=== PATIENT | male | born 1940 | race Caucasian/White ===

== ENCOUNTER 2019-02-11 06:31 | Day surgery (SDC) | payer MEDICARE, OTHER, SELFPAY ==
--- NOTE | 2019-02-11 | PATH_ITS ---
[facility] Accession Number: [id number] . 01 Material submitted: . PART A: colon - TRANSVERSE COLON POLYP, NEAR HEPATIC FLEXURE X 2 PART B: colon - COLON POLYP AT 60 CM . 02 Diagnosis: A. Transverse Colon, Near Hepatic Flexure, Polyps: Fragments of tubular adenoma (two polyps removed). . B. Colon at 60 cm, Polyp: Tubular adenoma. MRV/02/12/2019 . 02 Electronically signed: . Alexander Medina MD, PhD, Pathologist NPI- [id number] . 01 Gross description: . Part A: TRANSVERSE COLON POLYP, NEAR HEPATIC FLEXURE X 2: Received in formalin are 4 fragment(s) of bonilla, soft tissue measuring 0.1 x 0.1 x 0.1 cm to 0.3 x 0.3 x 0.2 cm which is entirely submitted and submitted entirely in 1 cassette(s) Part B: COLON POLYP AT 60 CM: Received in formalin are multiple fragment(s) of bonilla, soft tissue measuring 0.1 x 0.1 x 0.1 cm to 0.3 x 0.3 x 0.3 cm which is entirely submitted and submitted entirely in 1 cassette(s) /DMC /D[facility] . 02 Pathologist provided ICD-10: D12.3, D12.6 . 02 CPT . 488202, 389117 Performed at: 01 [facility] [address], [place], [place] [id number] MD Williams Acevedo MD Phone: [phone] Performed at: 02 [facility] [address] [place], [place] [id number] MD Ramona Mi MD Phone: [phone]
[2019-02-11 07:19] VITALS: BP 148/84; PULSE 66; RESP 16; TEMP 36.8; O2SAT 96; BMI 29.0
--- NOTE | 2019-02-11 08:10 | PM.HP.1 ---
History of Present Illness Date Patient Seen: 02/11/19 Time Patient Seen: 08:04 Chief complaint: [id number] Narrative: The patient is a gentleman here for screening colonoscopy. Last exam was in 2011. He has a history of polyps. Patient History Medical History Cataracts, bilateral (Acute) Gout (Acute) Hypertension (Acute) Social History household members: spouse Family & Social History Social History: household members spouse Meds Home Medications Medication Instructions Recorded Confirmed Type cholecalciferol (vitamin D3) 4,000 iu PO QDAY #0 05/04/17 02/11/19 History [Vitamin D3] allopurinol 100 mg PO DAILY 02/11/19 02/11/19 History lisinopril 20 mg PO DAILY 02/11/19 02/11/19 History omega 8-gwj-sxx-fish oil [Fish Oil] 2 cap PO DAILY 02/11/19 02/11/19 History Allergies Allergy/AdvReac Type Severity Reaction Status Date / Time No Known Drug Allergies Allergy Verified 02/11/19 07:18 Review of Systems Review of Systems All systems reviewed & are unremarkable except as noted in HPI and below Exam Vital Signs (past 8 hours): - 02/11/19 07:19 Temperature 98.3 F Pulse Rate 66 Respiratory Rate 16 Blood Pressure 148/84 H Pulse Oximetry 96 Oxygen Delivery Method Room Air Narrative Exam Narrative: Pleasant cooperative patient no apparent distress. Lungs are clear to auscultation. No rales or rhonchi. Heart regular rate and rhythm no murmur gallop. Abdomen is soft nontender without mass. May have a small asymptomatic umbilical hernia. Patient is alert and oriented x3. Assessment & Plan Assessment & Plan narrative: The patient for a screening colonoscopy. I have discussed the procedure with them. Risks of bleeding, perforation which would necessitate major operation, failure to find remove all lesions, the potential tattoo were all discussed. All questions were answered. They wished to proceed.
--- NOTE | 2019-02-11 08:12 | PM.PREOP ---
Pre-operative Note Interval Note History & Physical reviewed/Exam performed by Physician: Yes Changes to H&P: No ASA Class (for procedural sedation): II
[2019-02-11] MEDS: MIDAZOLAM 5 MG/5 ML VIAL IV (08:32)
[2019-02-11] MEDS: fentaNYL 250 MCG/5 ML INJ IV (08:33)
--- NOTE | 2019-02-11 08:40 | PM.OP.ENDO ---
Operative Date/Time/Diagnoses Date of procedure: 02/11/19 Time of procedure: 08:40 Pre-op diagnosis: Screening exam. Last exam 2011. Personal history of polyps. Post-op diagnosis: same (Polyps) Procedure & Clinicians Study performed: Colonoscopy with cold biopsy Same procedure as scheduled: Yes Indications: Screening Surgeon: Tom Bonilla Procedure Notes SCOAP/Timeout: Performed Procedure in detail: The patient was placed in the left lateral decubitus position and underwent IV sedation directed by the surgeon consisting of fentanyl and Versed. Digital exam was remarkable for a mildly enlarged prostate without dominant mass. The scope was inserted and advanced through the rectum into the sigmoid, descending, transverse, and ascending colon. I saw [address] in and these were biopsied and completely removed. They were located in the transverse colon near the hepatic flexure.. The cecum was reached identified by the ileocecal valve and the appendiceal opening. The scope was gradually brought out. One additional Polyp was found at 60 cm from the anal verge and was removed with cold biopsy forceps. The scope ultimately was retroflexed in the rectum. The appearance was normal. The scope was removed and the patient tolerated the procedure well. Prep was very good Scope withdrawal time: 9-1/2 minutes total Sedation minutes: 25 Findings: polyp (Three small polyps) Specimen(s): other (Polyps) Complications: none Recommendations: Colonscopy in 5 years Follow up: as needed Disposition: PACU
[2019-02-11 08:44] VITALS: BP 110/69; PULSE 64; RESP 12; TEMP 36.6; O2SAT 96
[2019-02-11 08:48] VITALS: BP 112/76; PULSE 60; RESP 14; O2SAT 95
[2019-02-11 08:53] VITALS: BP 117/72; PULSE 60; RESP 16; O2SAT 95
[2019-02-11 08:58] VITALS: BP 127/76; PULSE 58; RESP 12; TEMP 36.1; O2SAT 98
--- NOTE | 2019-02-11 09:06 | SUR.PHASEII ---
Spoke with friend Meri who has said she would keep an eye on the patient over the next few hours. He told me that he'd planned to go home to self care with friend a phone call away and not present. She is told over the next four hours it is better to be close by, due to the potential effects of the meds received.
[2019-02-11 09:10] VITALS: BP 140/80; PULSE 56; RESP 16; O2SAT 100
== END 2019-02-11 09:27 | disposition home or self-care (01) ==
PROVIDERS: Visit Provider Specialist
PROC: 0DJD8ZZ Inspection of Lower Intestinal Tract, Via Natural or Artificial Opening Endoscopic (ICD-10-PCS; CPT 45378; principal; 2019-02-11 07:45)
DX: Z86.010 Personal history of colon polyps (principal); D12.3 Benign neoplasm of transverse colon; D12.6 Benign neoplasm of colon, unspecified; N40.0 Benign prostatic hyperplasia without lower urinary tract symptoms; I10 Essential (primary) hypertension
CPT/HCPCS: 45380; 88305; 99152; J2250; J3010

== ENCOUNTER → 2019-06-09 15:26 | Outpatient (ROUT) | payer MEDICARE, OTHER, SELFPAY ==
[2019-06-09 15:52] LABS: Alanine Aminotransferase 30 IU/L (<50); Albumin 4.3 g/dL (3.5-5.0); Albumin Globulin Ratio 1.6 (1.0-2.8); Alkaline Phosphatase 56 U/L (38-126); Aspartate Aminotransferase 33 IU/L (17-59); Bilirubin Total 0.8 mg/dL (0.2-1.3); Blood Urea Nitrogen 33 mg/dL (9-20); Calcium 9.6 mg/dL (8.4-10.2); Carbon Dioxide 26 mmol/L (22-32); Chloride 107 mmol/L (98-107); Cholesterol 202 mg/dL (140-199); Estimated Glomerular Filt Rate 45.4 mL/min (>60); Globulin 2.7 g/dL (1.7-4.1); Glucose 106 mg/dL (80-110); HDL Cholesterol 69 mg/dL (40-60); HEMOLYSIS < 15 (0-50); LDL Cholesterol Calculated 123 mg/dL (<100); Potassium 4.9 mmol/L (3.4-5.1); Sodium 141 mmol/L (137-145); Triglycerides 51 mg/dL (35-150); Uric Acid 7.1 mg/dL (3.5-8.5)
[2019-06-09 16:21] LABS: Prostate Specific Antigen Scrn 0.949 ng/mL (0.1-4.0)
== END ==
PROVIDERS: Visit Provider Internal Medicine
DX: I10 Essential (primary) hypertension (principal); Z12.5 Encounter for screening for malignant neoplasm of prostate; M10.9 Gout, unspecified; E78.2 Mixed hyperlipidemia
CPT/HCPCS: 80053; 80061; 84550; G0103

== ENCOUNTER → 2020-05-05 19:01 | Outpatient (ROUT) | payer MEDICARE, OTHER, SELFPAY ==
[2020-05-05 19:15] LABS: Alanine Aminotransferase 24 IU/L (<50); Albumin 4.3 g/dL (3.5-5.0); Albumin Globulin Ratio 1.3 (1.0-2.8); Alkaline Phosphatase 63 U/L (38-126); Aspartate Aminotransferase 29 IU/L (17-59); BUN Creatinine Ratio 13.4 (6-22); Blood Urea Nitrogen 18 mg/dL (9-20); Calcium 9.4 mg/dL (8.4-10.2); Carbon Dioxide 25 mmol/L (22-32); Chloride 103 mmol/L (98-107); Cholesterol 208 mg/dL (140-199); Estimated Glomerular Filt Rate 51.6 mL/min (>60); Globulin 3.2 g/dL (1.7-4.1); Glucose 87 mg/dL (80-110); HDL Cholesterol 62 mg/dL (40-60); HEMOLYSIS < 15 (0-50); LDL Cholesterol Calculated 124 mg/dL (<100); Potassium 4.4 mmol/L (3.4-5.1); Sodium 138 mmol/L (137-145); Total Protein 7.5 g/dL (6.3-8.2); Triglycerides 111 mg/dL (35-150); Uric Acid 7.5 mg/dL (3.5-8.5)
[2020-05-06 14:25] LABS: Vitamin D 25 Hydroxy (D3) 80.5 ng/mL (30.0-100.0)
== END ==
PROVIDERS: Visit Provider Internal Medicine
DX: E78.2 Mixed hyperlipidemia (principal); M10.9 Gout, unspecified; E55.9 Vitamin D deficiency, unspecified; I10 Essential (primary) hypertension
CPT/HCPCS: 80053; 80061; 82306; 84550

== ENCOUNTER → 2020-07-21 14:57 | Outpatient (ROUT) | payer MEDICARE, OTHER, SELFPAY ==
[2020-07-21 15:32] LABS: Alanine Aminotransferase 35 IU/L (<50); Albumin 4.2 g/dL (3.5-5.0); Albumin Globulin Ratio 1.5 (1.0-2.8); Alkaline Phosphatase 57 U/L (38-126); Aspartate Aminotransferase 37 IU/L (17-59); BUN Creatinine Ratio 15.7 (6-22); Blood Urea Nitrogen 20 mg/dL (9-20); Calcium 9.5 mg/dL (8.4-10.2); Carbon Dioxide 29 mmol/L (22-32); Chloride 103 mmol/L (98-107); Cholesterol 147 mg/dL (140-199); Estimated Glomerular Filt Rate 54.8 mL/min (>60); Globulin 2.8 g/dL (1.7-4.1); Glucose 93 mg/dL (80-110); HDL Cholesterol 74 mg/dL (40-60); HEMOLYSIS < 15 (0-50); LDL Cholesterol Calculated 61 mg/dL (<100); Potassium 4.8 mmol/L (3.4-5.1); Sodium 137 mmol/L (137-145); Triglycerides 61 mg/dL (35-150); Uric Acid 5.2 mg/dL (3.5-8.5)
== END ==
PROVIDERS: Visit Provider Internal Medicine
DX: E78.2 Mixed hyperlipidemia (principal); M10.9 Gout, unspecified; N18.30 Chronic kidney disease, stage 3 unspecified; Z12.5 Encounter for screening for malignant neoplasm of prostate
CPT/HCPCS: 80053; 80061; 84153; 84154; 84550; G0103

== ENCOUNTER → 2020-11-23 14:45 | Outpatient (ROUT) | payer MEDICARE, OTHER, SELFPAY ==
[2020-11-23 15:01] LABS: Alanine Aminotransferase 28 IU/L (<50); Albumin Globulin Ratio 1.4 (1.0-2.8); Alkaline Phosphatase 55 U/L (38-126); Aspartate Aminotransferase 35 IU/L (17-59); BUN Creatinine Ratio 23.8 (6-22); Bilirubin Total 0.8 mg/dL (0.2-1.3); Blood Urea Nitrogen 35 mg/dL (9-20); Calcium 9.4 mg/dL (8.4-10.2); Carbon Dioxide 24 mmol/L (22-32); Chloride 108 mmol/L (98-107); Estimated Glomerular Filt Rate 46.3 mL/min (>60); Globulin 2.9 g/dL (1.7-4.1); Glucose 102 mg/dL (80-110); HEMOLYSIS < 15 (0-50); Sodium 140 mmol/L (137-145); Total Protein 6.9 g/dL (6.3-8.2)
== END ==
PROVIDERS: Visit Provider Internal Medicine
DX: I10 Essential (primary) hypertension (principal)
CPT/HCPCS: 80053

== ENCOUNTER → 2022-03-22 12:38 | Outpatient (CLI) | payer MEDICARE, OTHER, SELFPAY ==
[2022-03-22 13:53] LABS: Hematocrit 33.9 % (41-53); Hemoglobin 11.4 g/dL (13.5-17.5)
[2022-03-22 14:29] LABS: BUN Creatinine Ratio 17.1 (6-22); Blood Urea Nitrogen 25 mg/dL (9-20); Calcium 8.8 mg/dL (8.4-10.2); Carbon Dioxide 24 mmol/L (22-32); Chloride 106 mmol/L (98-107); Estimated Glomerular Filt Rate 49 mL/min (>60); Glucose 87 mg/dL (80-110); HEMOLYSIS < 15 (0-50); Potassium 4.7 mmol/L (3.4-5.1); Sodium 137 mmol/L (137-145)
[2022-03-22 15:59] LABS: Creatinine Urine Random 38.6 mg/dL; Protein (Total) Urine Random 58 mg/dL (0-12)
== END ==
PROVIDERS: PCP Internal Medicine; Referring Provider Student in an Organized Health Care Education/Training Program; Visit Provider Student in an Organized Health Care Education/Training Program
DX: N05.9 Unspecified nephritic syndrome with unspecified morphologic changes (principal); D64.9 Anemia, unspecified; R80.9 Proteinuria, unspecified
CPT/HCPCS: 36415; 80048; 82570; 84156; 85014; 85018

== ENCOUNTER → 2022-04-13 08:29 | Outpatient (CLI) | payer MEDICARE, OTHER, SELFPAY ==
--- NOTE | 2022-04-13 08:31 | DI.US.S_ITS ---
PROCEDURE: US RENAL COMPLETE INDICATIONS: STAGE 3 CHRONIC KIDNEY DISEASE TECHNIQUE: Real-time scanning was performed of the kidneys and bladder, with image documentation. COMPARISON: None. FINDINGS: Kidneys: Right kidney measures 11.4 cm long; left kidney measures 11.5 cm long. Right renal cortical thickness is 1 cm; left renal cortical thickness is 0.8 cm. Renal cortical echotexture is normal. No hydronephrosis or nephrolithiasis. No suspicious solid mass lesions. Multiple bilateral renal cysts are seen, with the largest on the right measuring 2.6 cm and the largest on the left 4 cm. Bladder: Pre-void bladder volume is 99 mL. Post-void residual is 7 mL. Pre-void images demonstrate no intraluminal masses or stones. On pre-void images, only the right ureteral jet can be seen with color Doppler interrogation. (Of note, ureteral jets may not be detectable in up to 25% of cases due to insufficient differences in specific gravity between ureteral and bladder urine). Miscellaneous: No free pelvic fluid. IMPRESSION: Mild cortical thinning can be seen involving each kidney. Negative for hydronephrosis. Small postvoid residual, 7 cc. Bilateral simple appearing renal cysts are seen. Dictated by: Kian Steinberg M.D. on 04/13/2022 at 8:20 Approved by: Kian Steinberg M.D. on 04/13/2022 at 8:21
== END ==
PROVIDERS: PCP Internal Medicine; Referring Provider Student in an Organized Health Care Education/Training Program; Visit Provider Student in an Organized Health Care Education/Training Program
DX: N18.31 Chronic kidney disease, stage 3a (principal); N28.1 Cyst of kidney, acquired; R80.9 Proteinuria, unspecified
CPT/HCPCS: 76770

== ENCOUNTER → 2022-05-01 10:42 | Outpatient (CLI) | payer MEDICARE, OTHER, SELFPAY ==
[2022-05-01 13:04] LABS: Hematocrit 38.3 % (41-53); Hemoglobin 12.6 g/dL (13.5-17.5)
[2022-05-01 13:27] LABS: BUN Creatinine Ratio 17.6 (6-22); Blood Urea Nitrogen 27 mg/dL (9-20); Calcium 9.1 mg/dL (8.4-10.2); Carbon Dioxide 23 mmol/L (22-32); Chloride 105 mmol/L (98-107); Estimated Glomerular Filt Rate 46 mL/min (>60); Glucose 96 mg/dL (80-110); HEMOLYSIS < 15 (0-50); Phosphorous 4.3 mg/dL (2.3-3.7); Potassium 4.6 mmol/L (3.4-5.1); Sodium 140 mmol/L (137-145)
[2022-05-01 14:15] LABS: Appearance Urine UA CLEAR; Bilirubin Urine UA NEGATIVE (NEGATIVE); Color Urine UA YELLOW; Glucose Urine UA NEGATIVE (Negative); Ketones Urine UA NEGATIVE (NEGATIVE); Leukocyte Esterase Urine UA TRACE (NEGATIVE); Nitrite Urine UA NEGATIVE (Negative); Occult Blood Urine UA TRACE-LYSED (Negative); Protein Urine UA 2+ (Negative); Urobilinogen Urine UA 0.2 E.U./dL (0.2); pH Urine UA 5.5 (4.5-8.0)
[2022-05-01 14:30] LABS: Bacteria Urine None Seen; Culture Indicated Urine Specimen Cultured; RBC Urine 0-1/HPF (0-5/HPF); WBC Urine 5-10/HPF (0-5/HPF)
[2022-05-01 14:35] LABS: Creatinine Urine Random 105.2 mg/dL; Protein (Total) Urine Random 113 mg/dL (0-12); Protein Creatinine Ratio Urine 1.07 GRAM/24H
[2022-05-01 15:14] LABS: Hepatitis B Surface Antigen NEGATIVE s/c (NEGATIVE)
[2022-05-01 15:27] LABS: Hep C Virus Ab w/Reflex Quant NEGATIVE s/c (NEGATIVE)
[2022-05-02 04:28] LABS: Hepatitis B Core Antibody Negative (Negative)
[2022-05-02 04:36] LABS: Complement C3 122 mg/dL (82-167)
[2022-05-02 18:16] LABS: DNA (DS) Antibody 4 IU/mL (0-9); Free Kappa Lt Chains, Serum 54.7 mg/L (3.3-19.4); Free Lambda Lt Chains,Serum 29.8 mg/L (5.7-26.3)
[2022-05-03 09:08] LABS: Parathyroid Hormone Int 48 pg/mL (15-65)
[2022-05-03 11:54] LABS: Hepatitis B Surf Ab Qualitativ Non Reactive (.)
[2022-05-03 16:40] LABS: Albumin 3.9 g/dL (2.9-4.4); Alpha-1-Globulin 0.2 g/dL (0.0-0.4); Alpha-2-Globulin 0.6 g/dL (0.4-1.0); Cytoplasmic C-ANCA <1:20 titer (Neg:<1:20); Gamma Globulin 1.1 g/dL (0.4-1.8); Globulin Total 2.9 g/dL (2.2-3.9); Perinuclear P-ANCA <1:20 titer (Neg:<1:20); Protein, Total 6.8 g/dL (6.0-8.5)
[2022-05-04 17:52] LABS: ANA Screen, IFA Negative (.)
[2022-05-23 14:03] LABS: Alpha-1 Globulin, Ur 2.1 % (.); Beta Globulin, Ur 12.8 % (.); Gamma Globulin, Ur 9.3 % (.); M-Spike % Not Observed % (Not Observed); Urine Total Protein 98.9 mg/dL (Not Estab.)
== END ==
PROVIDERS: PCP Internal Medicine; Referring Provider Student in an Organized Health Care Education/Training Program; Visit Provider Student in an Organized Health Care Education/Training Program
DX: L93.2 Other local lupus erythematosus (principal); M31.30 Wegener's granulomatosis without renal involvement; M32.10 Systemic lupus erythematosus, organ or system involvement unspecified; N00.9 Acute nephritic syndrome with unspecified morphologic changes; N05.9 Unspecified nephritic syndrome with unspecified morphologic changes; D89.89 Other specified disorders involving the immune mechanism, not elsewhere classified; B19.10 Unspecified viral hepatitis B without hepatic coma; D64.9 Anemia, unspecified; E83.30 Disorder of phosphorus metabolism, unspecified; N25.81 Secondary hyperparathyroidism of renal origin; R80.9 Proteinuria, unspecified; D47.2 Monoclonal gammopathy; N30.00 Acute cystitis without hematuria
CPT/HCPCS: 36415; 80048; 81001; 82570; 83516; 83883; 83970; 84100; 84155; 84156; 84165; 84166; 85014; 85018; 86038; 86160; 86225; 86256; 86704; 86706; 86803; 87086; 87340

== ENCOUNTER → 2022-09-29 13:54 | Outpatient (CLI) | payer MEDICARE, OTHER, SELFPAY ==
[2022-09-29 14:31] LABS: Hematocrit 33.9 % (41-53); Hemoglobin 11.4 g/dL (13.5-17.5)
[2022-09-29 14:40] LABS: Blood Urea Nitrogen 30 mg/dL (9-20); Calcium 8.9 mg/dL (8.4-10.2); Carbon Dioxide 23 mmol/L (22-32); Chloride 107 mmol/L (98-107); Estimated Glomerular Filt Rate 44 mL/min (>60); Glucose 88 mg/dL (80-110); HEMOLYSIS < 15 (0-50); Potassium 4.5 mmol/L (3.4-5.1); Sodium 138 mmol/L (137-145)
[2022-09-29 14:54] LABS: Creatinine Urine Random 73.2 mg/dL; Protein (Total) Urine Random 84 mg/dL (0-12); Protein Creatinine Ratio Urine 1.14 GRAM/24H
[2022-10-01 10:07] LABS: Parathyroid Hormone Int 44 pg/mL (15-65)
== END ==
PROVIDERS: PCP Internal Medicine; Referring Provider Student in an Organized Health Care Education/Training Program; Visit Provider Student in an Organized Health Care Education/Training Program
DX: N05.9 Unspecified nephritic syndrome with unspecified morphologic changes (principal); D64.9 Anemia, unspecified; N25.81 Secondary hyperparathyroidism of renal origin; R80.9 Proteinuria, unspecified
CPT/HCPCS: 36415; 80048; 82570; 83970; 84156; 85014; 85018

== ENCOUNTER → 2023-05-16 10:34 | Outpatient (CLI) | payer MEDICARE, OTHER, SELFPAY ==
[2023-05-16 11:44] LABS: Hematocrit 32.5 % (41-53); Hemoglobin 10.7 g/dL (13.5-17.5)
[2023-05-16 12:07] LABS: BUN Creatinine Ratio 18.5 (6-22); Blood Urea Nitrogen 30 mg/dL (9-20); Calcium 9.1 mg/dL (8.4-10.2); Carbon Dioxide 24 mmol/L (22-32); Chloride 105 mmol/L (98-107); Estimated Glomerular Filt Rate 42 mL/min (>60); Glucose 97 mg/dL (80-110); HEMOLYSIS < 15 (0-50); Potassium 4.8 mmol/L (3.4-5.1); Sodium 135 mmol/L (137-145)
[2023-05-16 13:25] LABS: Creatinine Urine Random 58.9 mg/dL; Protein (Total) Urine Random 55 mg/dL (0-12); Protein Creatinine Ratio Urine 0.93 GRAM/24H
[2023-05-18 07:21] LABS: Parathyroid Hormone Int 44 pg/mL (15-65)
== END ==
PROVIDERS: PCP Internal Medicine; Referring Provider Student in an Organized Health Care Education/Training Program; Visit Provider Student in an Organized Health Care Education/Training Program
DX: N05.9 Unspecified nephritic syndrome with unspecified morphologic changes (principal); D70.9 Neutropenia, unspecified; D63.1 Anemia in chronic kidney disease; R80.9 Proteinuria, unspecified; N25.81 Secondary hyperparathyroidism of renal origin
CPT/HCPCS: 36415; 80048; 82570; 83970; 84156; 85014; 85018

== ENCOUNTER → 2023-10-09 15:44 | Outpatient (CLI) | payer MEDICARE, OTHER, SELFPAY ==
[2023-10-09 16:46] LABS: Hematocrit 33.6 % (41-53); Hemoglobin 11.2 g/dL (13.5-17.5)
[2023-10-09 17:28] LABS: BUN Creatinine Ratio 21.1 (6-22); Blood Urea Nitrogen 38 mg/dL (9-20); Calcium 9.3 mg/dL (8.4-10.2); Carbon Dioxide 21 mmol/L (22-32); Chloride 110 mmol/L (98-107); Estimated Glomerular Filt Rate 37 mL/min (>60); Glucose 83 mg/dL (80-110); HEMOLYSIS < 15 (0-50); Potassium 4.6 mmol/L (3.4-5.1); Sodium 137 mmol/L (137-145)
[2023-10-09 19:35] LABS: Protein (Total) Urine Random 141 mg/dL (0-12); Protein Creatinine Ratio Urine 1.16 GRAM/24H
[2023-10-12 09:45] LABS: Parathyroid Hormone Int 47 pg/mL (15-65)
== END ==
PROVIDERS: PCP Internal Medicine; Referring Provider Student in an Organized Health Care Education/Training Program; Visit Provider Student in an Organized Health Care Education/Training Program
DX: N05.9 Unspecified nephritic syndrome with unspecified morphologic changes (principal); D70.9 Neutropenia, unspecified; D63.1 Anemia in chronic kidney disease; N25.81 Secondary hyperparathyroidism of renal origin; R80.9 Proteinuria, unspecified
CPT/HCPCS: 36415; 80048; 82570; 83970; 84156; 85014; 85018

== ENCOUNTER 2024-01-29 08:31 | Day surgery (SDC) | payer MEDICARE, OTHER, SELFPAY ==
--- NOTE | 2024-01-29 | PATH_ITS ---
[facility] Accession Number: [id number] No. of containers..01 Tissue . 01 Material submitted: . colon - TRANSVERSE COLON POLYP . 01 Diagnosis: TRANSVERSE COLON POLYP: Tubular adenoma. STO 01/31/2024 1448 Local . 01 Electronically signed: . Williams Acevedo MD, Pathologist NPI- [id number] . 01 Gross description: . TRANSVERSE COLON POLYP: Received in formalin is 1 fragment(s) of bonilla, soft tissue measuring 0.5 x 0.4 x 0.3 cm submitted entirely in 1 cassette(s) /RYLIE 01/31/2024 [facility]8 Local . 01 Pathologist provided ICD-10: D12.3 . 01 CPT . 714580 Specimen Comment: A courtesy copy of this report has been sent to [phone] Performed at: [address] [id number] MD Williams Acevedo MD Phone: [phone]
[2024-01-29] MEDS: LACTATED RINGERS 1,000 ML 150 ML IV (08:48)
[2024-01-29 08:56] VITALS: BP 161/84; PULSE 67; RESP 16; TEMP 36.4; O2SAT 98
--- NOTE | 2024-01-29 09:19 | P.HP_ITS ---
History of Present Illness History of Present Illness Date Patient Seen: 01/29/24 Time Patient Seen: 09:19 Chief complaint: Colonoscopy Narrative: 83-year-old male personal history of colonic polyps here for screening colonoscopy. Last colonoscopy 2018. No family history of colon cancer. No abdominal concerns today. [facility] Medical History Cataracts, bilateral Gout Hypertension Social History household members: spouse Smoking Status: Never smoker alcohol intake: current Meds Home Medications and Allergies Home Medications Medication Instructions Recorded Confirmed Type cholecalciferol (vitamin D3) 50 4,000 iu PO QDAY ##0 05/04/17 01/29/24 History mcg (2,000 unit) capsule (Vitamin D3) allopurinol 100 mg tablet 100 mg PO DAILY 02/11/19 01/29/24 History lisinopril 20 mg tablet 20 mg PO DAILY 02/11/19 01/29/24 History omega 8-use-baw-fish oil 1,000 mg 2 cap PO DAILY 02/11/19 01/29/24 History (120 mg-180 mg) capsule (Fish Oil) sodium,potassium,mag sulfates 17.5 See Rx Instructions PO .COMPLEX 12/27/23 Rx gram-3.13 gram-1.6 gram oral soln #354 mL (Suprep Bowel Prep Kit) amlodipine 2.5 mg tablet 2.5 mg PO DAILY 01/29/24 01/29/24 History hydrochlorothiazide 12.5 mg capsule 12.5 mg PO QAM 01/29/24 01/29/24 History lisinopril 40 mg tablet 60 mg PO DAILY 01/29/24 01/29/24 History metoprolol succinate 25 mg 25 mg PO DAILY 01/29/24 01/29/24 History tablet,extended release 24 hr Allergies Allergy/AdvReac Type Severity Reaction Status Date / Time No Known Drug Allergies Allergy Verified 01/29/24 08:52 Exam Vital Signs (past 8 hours): - 01/29/24 08:56 Temperature 97.5 F L Pulse Rate 67 Respiratory Rate 16 Blood Pressure 161/84 H Pulse Oximetry 98 Oxygen Delivery Method Room Air Oxygen Delivery Method Room Air Narrative Exam Narrative: General adult man alert oriented no acute distress Chest nonlabored respiration Extremities warm well perfused Assessment & Plan Assessment & Plan narrative: The patient requires colorectal screening and colonoscopy is recommended. Technical details were discussed. Risks, benefits, alternatives explained. Risks including but not limited to myocardial infarction, aspiration, bleeding, pain, missed lesion, incomplete examination, need for further radiographic studies, intestinal injury, and need for major abdominal surgery were discussed. All questions were answered to their satisfaction, and they are in agreement with this plan. Time-Based Coding :: [TOTAL MINUTES] spent with patient and on the chart (including review of chart, obtaining history, exam, reviewing outside data, placing orders, documenting exam and treatment plan, and counseling patient) on [DATE].
[2024-01-29 09:44] VITALS: BP 108/73; PULSE 72; RESP 14; TEMP 36.4; O2SAT 98
--- NOTE | 2024-01-29 09:48 | P.OP.COLON_ITS ---
Operative Date/Time/Diagnoses Date of procedure: 01/29/24 Time of procedure: 09:48 Pre-op diagnosis: History of polyps Post-op diagnosis: other (Colonic polyp x1) Procedure & Clinicians Study performed: Screening colonoscopy and polypectomy Same procedure as scheduled: Yes Indications: Colorectal screening Surgeon: Ganga Curtis Procedure Notes Procedure in detail: The history and physical was performed/updated and the patient is ASA class is 2. The procedure was discussed in detail with the patient. Potential risks complications including infection, bleeding, missed diagnosis, perforation, need for surgery, and were explained. Their questions were answered and informed consent was obtained. Patient was brought to the procedure room and placed standard monitoring equipment. The patient's vital signs were monitored continuously throughout the entire procedure. Prior to starting time-out was performed. The patient was placed in the left lateral recumbent position. Procedural sedation was administered by anesthesia. Examination began with a thorough inspection of the perianal area there was no evidence of fissures, fistulae, external hemorrhoids or cutaneous malignancy. The colonoscopy scope was then placed into the anal canal and was advanced to the cecum, which was identified by the ileocecal valve, the appendiceal orifice and the confluence of the taenia. The scope was then slowly withdrawn examining colon thoroughly in all directions, irrigating it of any residual stool. The scope was retroflexed within the rectum The patient tolerated the procedure well. They will be discharged once criteria are met. The prep was of good/excellent quality. The withdrawl time was 6 minutes. FINDINGS * Transverse colon polyp 8 mm removed with cold snare Specimen(s): other (Transverse colon polyp) Impression: Colonic polyp x1 Post-procedure Recommendations: Colonoscopy in 5 years (If in good health) Disposition: same day surgery
[2024-01-29 09:49] VITALS: BP 125/78; PULSE 73; RESP 15; O2SAT 98
[2024-01-29 09:54] VITALS: BP 128/84; PULSE 67; RESP 15; TEMP 36; O2SAT 98
== END 2024-01-29 10:13 | disposition home or self-care (01) ==
PROVIDERS: PCP Internal Medicine; Referring Provider Surgery; Visit Provider Surgery
PROC: 0DJD8ZZ Inspection of Lower Intestinal Tract, Via Natural or Artificial Opening Endoscopic (ICD-10-PCS; CPT 45378; principal; 2024-01-29 09:30)
DX: Z12.11 Encounter for screening for malignant neoplasm of colon (principal); Z86.010 Personal history of colon polyps; D12.3 Benign neoplasm of transverse colon
CPT/HCPCS: 45385; J2704

== ENCOUNTER → 2024-02-27 11:58 | Outpatient (CLI) | payer MEDICARE, OTHER, SELFPAY ==
[2024-02-27 12:41] LABS: Hematocrit 31.9 % (41-53); Hemoglobin 10.8 g/dL (13.5-17.5)
[2024-02-27 14:06] LABS: BUN Creatinine Ratio 19.4 (6-22); Blood Urea Nitrogen 34 mg/dL (9-20); Calcium 9.2 mg/dL (8.4-10.2); Carbon Dioxide 21 mmol/L (22-32); Chloride 108 mmol/L (98-107); Estimated Glomerular Filt Rate 39 mL/min (>60); Glucose 109 mg/dL (80-110); HEMOLYSIS < 15 (0-50); Potassium 4.9 mmol/L (3.4-5.1); Sodium 136 mmol/L (137-145)
[2024-02-27 20:11] LABS: Creatinine Urine Random 102.97 mg/dL; Protein (Total) Urine Random 88 mg/dL (0-12); Protein Creatinine Ratio Urine 0.85 GRAM/24H
[2024-02-28 07:11] LABS: Parathyroid Hormone Int 47 pg/mL (15-65)
== END ==
LOC: LAB 11:59
PROVIDERS: PCP Internal Medicine; Referring Provider Student in an Organized Health Care Education/Training Program; Visit Provider Student in an Organized Health Care Education/Training Program
DX: N05.9 Unspecified nephritic syndrome with unspecified morphologic changes (principal); D70.9 Neutropenia, unspecified; D63.1 Anemia in chronic kidney disease; R80.9 Proteinuria, unspecified; N25.81 Secondary hyperparathyroidism of renal origin
CPT/HCPCS: 36415; 80048; 82570; 83970; 84156; 85014; 85018

== ENCOUNTER → 2024-08-15 12:10 | Outpatient (CLI) | payer MEDICARE, OTHER, SELFPAY ==
[2024-08-15 12:56] LABS: Hematocrit 28.5 % (41-53); Hemoglobin 9.5 g/dL (13.5-17.5)
[2024-08-15 13:03] LABS: Creatinine Urine Random 52.23 mg/dL; Protein (Total) Urine Random 31 mg/dL (0-12); Protein Creatinine Ratio Urine 0.59 GRAM/24H
[2024-08-15 13:05] LABS: BUN Creatinine Ratio 21.1 (6-22); Blood Urea Nitrogen 36 mg/dL (9-20); Carbon Dioxide 15 mmol/L (22-32); Chloride 109 mmol/L (98-107); Estimated Glomerular Filt Rate 39 mL/min (>60); Glucose 92 mg/dL (80-110); HEMOLYSIS < 15 (0-50); Potassium 4.9 mmol/L (3.4-5.1); Sodium 139 mmol/L (137-145)
[2024-08-16 09:36] LABS: Parathyroid Hormone Int 39 pg/mL (15-65)
== END ==
PROVIDERS: PCP Internal Medicine; Referring Provider Student in an Organized Health Care Education/Training Program; Visit Provider Student in an Organized Health Care Education/Training Program
DX: N05.9 Unspecified nephritic syndrome with unspecified morphologic changes (principal); D70.9 Neutropenia, unspecified; D63.1 Anemia in chronic kidney disease; N25.81 Secondary hyperparathyroidism of renal origin; R80.9 Proteinuria, unspecified
CPT/HCPCS: 36415; 80048; 82570; 83970; 84156; 85014; 85018

== ENCOUNTER → 2024-09-24 09:52 | Outpatient (CLI) | payer MEDICARE, OTHER, SELFPAY ==
[2024-09-24 10:45] LABS: BUN Creatinine Ratio 17.9 (6-22); Blood Urea Nitrogen 25 mg/dL (9-20); Calcium 9.1 mg/dL (8.4-10.2); Carbon Dioxide 21 mmol/L (22-32); Chloride 109 mmol/L (98-107); Estimated Glomerular Filt Rate 50 mL/min (>60); Glucose 105 mg/dL (80-110); HEMOLYSIS < 15 (0-50); Iron 112 ug/dL (49-181); Sodium 138 mmol/L (137-145)
[2024-09-24 10:46] LABS: Creatinine Urine Random 31.55 mg/dL; Protein (Total) Urine Random 76 mg/dL (0-12)
[2024-09-24 10:52] LABS: NT-proBNP (BNP-Adult 18+) 995 pg/mL (<450)
[2024-09-24 11:18] LABS: Ferritin 89 ng/mL (18-464)
== END ==
PROVIDERS: PCP Internal Medicine; Referring Provider Student in an Organized Health Care Education/Training Program; Visit Provider Student in an Organized Health Care Education/Training Program
DX: I50.32 Chronic diastolic (congestive) heart failure (principal); N05.9 Unspecified nephritic syndrome with unspecified morphologic changes; D50.0 Iron deficiency anemia secondary to blood loss (chronic); R80.9 Proteinuria, unspecified
CPT/HCPCS: 36415; 80048; 82570; 82728; 83540; 83880; 84156

== ENCOUNTER → 2024-10-01 14:03 | Outpatient (CLI) | payer MEDICARE, OTHER, SELFPAY ==
[2024-10-01 19:03] LABS: Hepatitis B Surface Antigen NEGATIVE s/c (NEGATIVE)
[2024-10-01 19:24] LABS: Hep C Virus Ab w/Reflex Quant NEGATIVE s/c (NEGATIVE)
[2024-10-02 01:10] LABS: Hepatitis B Core Antibody Negative (Negative)
[2024-10-02 04:08] LABS: Complement C3 105 mg/dL (82-167)
[2024-10-02 07:40] LABS: Hepatitis B Surf AB Quant <3.5 mIU/mL (Immunity>10)
== END ==
PROVIDERS: PCP Internal Medicine; Referring Provider Student in an Organized Health Care Education/Training Program; Visit Provider Student in an Organized Health Care Education/Training Program
DX: M31.30 Wegener's granulomatosis without renal involvement (principal); M32.10 Systemic lupus erythematosus, organ or system involvement unspecified; N00.9 Acute nephritic syndrome with unspecified morphologic changes; B19.10 Unspecified viral hepatitis B without hepatic coma; B17.10 Acute hepatitis C without hepatic coma; R80.9 Proteinuria, unspecified; D47.2 Monoclonal gammopathy
CPT/HCPCS: 36415; 83516; 83883; 84155; 84156; 84165; 84166; 86038; 86160; 86225; 86256; 86704; 86706; 86803; 87340

== ENCOUNTER → 2024-10-28 12:59 | Outpatient (CLI) | payer MEDICARE, OTHER, SELFPAY ==
--- NOTE | 2024-10-28 13:01 | DI.ECHO.S_ITS ---
[facility] : : [address] [place] : : [id number] : : Phone: [phone] Echocardiogram Report + + :Name: MARLON SHARIF Study Date: 10/28/2024 Height: 67 in : :[facility] ReadingLocation: Weight: 186 lb : : Gender: Male BSA: 2.0 m2 : :: 1940 Age: 84 yrs BP: 133/80 mmHg: :Reason For Study: Dyspnea : :Ordering Physician: RAVI, : :RENAE Performed By: Casey Candelario : :Referring: RENAE RODRIGUES : + + Interpretation Summary Sinus bradycardia with HR 48-55 bpm. Normal LV size, wall thickness, wall motion and LV systolic function. EF is 60-65%. Stage I diastolic dysfunction. No significant valvular abnormalities. No prior study available for comparison. Procedure: A two-dimensional transthoracic echocardiogram with color flow and Doppler was performed. The study quality was technically adequate. There is no prior echocardiogram noted for this patient. The heart rate ranged between 49-55 bpm during the study. The patient was in a bradycardic rhythm during the exam. Left Ventricle: The left ventricle is normal in size and wall thickness. Left ventricular systolic function is normal. The ejection fraction is estimated to be 60-65%. There are no focal wall motion abnormalities. Diastolic parameters suggest a relaxation abnormality of the left ventricle, consistent with probable normal filling pressures. Right Ventricle: The right ventricle is normal in size and function. Atria: The left atrial size is normal. Right atrial size is normal. There is no Doppler evidence for an interatrial shunt. Mitral Valve: There is mild mitral annular calcification. The mitral valve leaflets appear mildly thickened, but open well. There is no mitral valve stenosis. There is mild mitral regurgitation. Aortic Valve: The aortic valve is trileaflet. The aortic valve opens well. There is no aortic valve stenosis. There is trace aortic regurgitation. Tricuspid Valve: The tricuspid valve is not well visualized, but is grossly normal. There is mild tricuspid regurgitation. The right ventricular systolic pressure is estimated to be at least 23 mmHg based on an estimated right atrial pressure of 3 mm Hg. Pulmonic Valve: The pulmonic valve is not well seen, but is grossly normal. There is a trace or physiologic amount of pulmonic regurgitation. Great Vessels: The aortic root is normal size. The ascending aorta is normal in size. The aortic arch could not be well visualized. The IVC is of normal diameter and collapses greater than 50% with a sniff. This suggests a low right atrial pressure of 3 mm Hg. Pericardium/ Pleura There is no pericardial effusion. MMode/2D Measurements & Calculations LVIDd: 5.0 cm LVOT diam: 2.0 cm LVIDs: 3.2 cm Ao root diam: 4.0 cm FS: 36.3 % asc Aorta Diam: 3.9 cm IVSd: 0.83 cm LVPWd: 0.89 cm LV martin. diameter/BSA (cm/m^2): 2.5 LV sys. diameter/BSA (cm/m^2): 1.6 LA A2 area: 24.1 cm2 RA long axis: 6.3 cm LA A4 area: 18.0 cm2 RA area: 20.6 cm2 LA length (vol): 5.9 cm RA vol: 56.9 ml LA vol: 62.9 ml RA : 29.0 ml/m2 LA vol index: 32.1 ml/m2 RVD1 (basal): 3.5 cm RVD2 (mid): 2.9 cm TAPSE: 2.1 cm Doppler Measurements & Calculations Ao V2 max: 130.2 cm/sec LVOT Max Osmany: 130.7 cm/sec Ao V2 mean: 83.9 cm/sec LV V1 max P.8 mmHg Ao max P.8 mmHg LV V1 VTI: 27.5 cm Ao mean P.3 mmHg CATHY(I,D): 3.2 cm2 Ao V2 VTI: 27.8 cm CATHY(V,D): 3.3 cm2 sev ratio: 0.99 CATHY indexed to BSA (cm^2/m^2): 1.6 MV E max osmany: 60.6 cm/sec TR max osmany: 209.4 cm/sec MV A max osmany: 81.3 cm/sec TR max P.6 mmHg MV E/A: 0.75 PA V2 max: 93.4 cm/sec Med Peak E' Osmany: 6.7 cm/sec PA V2 mean: 56.9 cm/sec E/E' med: 9.0 PA mean P.7 mmHg Lat Peak E' Osmany: 9.8 cm/sec PA pr(Accel): 20.8 mmHg E/E' lat: 6.2 E/e' average: 7.6 MV dec time: 0.26 sec SV(LVOT): 89.2 ml Electronically signed by: Randi Perez M.D. on Reading Physician:10/28/2024 11:07 PM
== END ==
PROVIDERS: PCP Internal Medicine; Referring Provider Internal Medicine; Visit Provider Internal Medicine
DX: I08.1 Rheumatic disorders of both mitral and tricuspid valves (principal); R00.1 Bradycardia, unspecified; R06.00 Dyspnea, unspecified
CPT/HCPCS: 93306

== ENCOUNTER → 2024-11-19 12:07 | Outpatient (CLI) | payer MEDICARE, OTHER, SELFPAY ==
[2024-11-19 12:44] LABS: Hemoglobin 9.9 g/dL (13.5-17.5)
[2024-11-19 13:09] LABS: Albumin 3.8 g/dL (3.5-5.0); BUN Creatinine Ratio 19.6 (6-22); Blood Urea Nitrogen 29 mg/dL (9-20); Calcium 8.9 mg/dL (8.4-10.2); Carbon Dioxide 21 mmol/L (22-32); Chloride 110 mmol/L (98-107); Estimated Glomerular Filt Rate 47 mL/min (>60); Glucose 107 mg/dL (70-99); HEMOLYSIS < 15 (0-50); Phosphorous 3.6 mg/dL (2.3-3.7); Potassium 4.7 mmol/L (3.4-5.1); Sodium 137 mmol/L (137-145)
[2024-11-19 13:16] LABS: Creatinine Urine Random 39.79 mg/dL; Protein (Total) Urine Random 44 mg/dL (0-12)
[2024-11-22 08:35] LABS: Calcium 8.8 mg/dL (8.6-10.2); Parathyroid Hormone, Intact 44 pg/mL (15-65)
== END ==
PROVIDERS: PCP Internal Medicine; Referring Provider Student in an Organized Health Care Education/Training Program; Visit Provider Student in an Organized Health Care Education/Training Program
DX: N17.9 Acute kidney failure, unspecified (principal)
CPT/HCPCS: 36415; 80069; 82310; 82570; 83970; 84156; 85018

== ENCOUNTER → 2025-03-17 10:20 | Outpatient (CLI) | payer MEDICARE, OTHER, SELFPAY ==
[2025-03-17 11:33] LABS: Hematocrit 31.9 % (41-53); Hemoglobin 10.7 g/dL (13.5-17.5)
[2025-03-17 12:00] LABS: Blood Urea Nitrogen 31 mg/dL (9-20); Calcium 9.0 mg/dL (8.4-10.2); Carbon Dioxide 22 mmol/L (22-32); Chloride 109 mmol/L (98-107); Estimated Glomerular Filt Rate 40 mL/min (>60); Glucose 102 mg/dL (70-99); HEMOLYSIS < 15 (0-50); Potassium 4.9 mmol/L (3.4-5.1); Sodium 140 mmol/L (137-145)
[2025-03-17 12:02] LABS: Protein (Total) Urine Random 63 mg/dL (0-12); Protein Creatinine Ratio Urine 0.86 GRAM/24H
[2025-03-17 12:09] LABS: NT-proBNP (BNP-Adult 18+) 509 pg/mL (<450)
== END ==
PROVIDERS: PCP Internal Medicine; Referring Provider Student in an Organized Health Care Education/Training Program; Visit Provider Student in an Organized Health Care Education/Training Program
DX: I50.32 Chronic diastolic (congestive) heart failure (principal); D63.1 Anemia in chronic kidney disease; D70.9 Neutropenia, unspecified; N05.9 Unspecified nephritic syndrome with unspecified morphologic changes; N25.81 Secondary hyperparathyroidism of renal origin; R80.9 Proteinuria, unspecified
CPT/HCPCS: 36415; 80048; 82570; 83880; 83970; 84156; 85014; 85018